=== PATIENT | female | born 1975 | race Caucasian/White ===

== ENCOUNTER 2023-08-31 17:50 | Emergency (ER) | payer SELFPAY ==
[2023-08-31 17:54] VITALS: BP 120/41; PULSE 68; TEMP 36.6; O2SAT 98; BMI 26.6
--- NOTE | 2023-08-31 18:05 | XR_ITS ---
The [address] [address] Patient Name: STERLING FROST MRN: [id number] date: 1975 Sex: F Assigned Patient Location: ED.MAIN Current Patient Location: Accession/Order Number: [id number] Exam Date: 08/31/2023 18:12 Report Date: 08/31/2023 19:13 At the request of: CLYDE LOPEZ Procedure: XR tibia fibula LT 2V EXAM: XR tibia fibula LT 2V , 08/31/2023 HISTORY: pain mid calf COMPARISON: None. TECHNIQUE: X-rays of the left tibia and fibula 4 views. FINDINGS: No fracture or dislocation left tibia and fibula. No obvious soft tissue swelling. The bones are well-mineralized. Unremarkable joint spaces. XR/XR tibia fibula LT 2V IMPRESSION: No fracture or dislocation left tibia and fibula. Electronically authenticated by: GARRETT CARMONA Date: 08/31/2023 19:13
--- NOTE | 2023-08-31 18:07 | ED_ITS ---
HPI HPI - Extremity Injury (Lower) General Chief Complaint: Extremity Injury, Lower Stated Complaint: LOWER EXTREMITY INJURY Time Seen by Provider: 08/31/23 17:51 Source: patient Mode of arrival: Wheelchair History of Present Illness HPI Narrative: Patient is a 48-year-old female presents to the ER with concerns of left calf pain. Earlier this evening patient was playing a game with a ball and racquet in the yard with her granddaughter when she felt a pulling sensation in her left medial calf. Patient states she has had the same episode before in her right leg with a calf tear. Patient has crutches and a boot at home but was concerned about the level of pain and presents to the ER. Patient works as a medical coding specialist at the [employer] and verbalizes that she would like to follow- up with them for ongoing care but did not want to drive to the [facility] this evening. Patient denies any head or neck injury. Patient notes pain is well localized to the medial gastroc, nonradiating at the musculotendinous junction. She denies any pain to the distal ankle or foot. Patient denies any injury. MD complaint: Reports leg injury (Left medial gastroc) Type of Injury: Reports other (Pushoff with calf and extension) Place: Reports home Severity: moderate Exacerbating factors: Reports weight bearing, movement and palpation Context: Reports jumping Associated symptoms: Reports swelling Treatments prior to arrival: Reports cold therapy Related Data Previous Rx's ?Medication ?Instructions ?Recorded ibuprofen 600 mg tablet 600 mg PO TID PRN pain #30 tabs 08/31/23 miscellaneous medical supply 1 ea miscellaneous DAILY 60 days 08/31/23 #1 ea Allergies Allergy/AdvReac Type Severity Reaction Status Date / Time acetaminophen [From Vicodin] Allergy Severe Verified 08/31/23 17:58 hydrocodone [From Vicodin] Allergy Severe Verified 08/31/23 17:58 Opioid HPI Opioid Management Most Recent Pain and Opioid Data: No Data to Display Review of Systems ROS Constitutional Denies: fever or chills Eyes Denies: change in vision Ears, nose, mouth, and throat Denies: throat pain or neck pain Cardiovascular Denies: chest pain or palpitations Respiratory Denies: shortness of breath or cough Gastrointestinal Denies: abdominal pain or nausea Musculoskeletal Reports: extremity pain and extremity swelling (left medial gastroc); Denies: back pain or neck pain Integumentary/Breast Denies: rash or itching Neurological Denies: headache Hematologic/Lymphatic Denies: easy bruising Allergic/Immunologic Denies: hives Exam Narrative Exam Narrative: Vital signs reviewed and nurse's notes. The patient is not hypoxic. General: Alert, no acute distress, patient resting comfortably Skin: warm, intact, no pallor noted Head: Normocephalic, atraumatic Eye: Normal conjunctiva, no exudates Respiratory: No acute distress, lungs CTA Musculoskeletal: No evidence of deformity to the left knee or calf. There is trace amount of swelling medial gastroc at musculotendinous junction. There is no ecchymosis. No erythema or warmth noted. DP and PT pulses are intact 2+. Normal sensation, normal capillary refill less than 2 seconds. There is no cyanosis or mottling noted. The patient has point tenderness medial gastroc musculotendinous junction. no pain to distal achilles , belly or lateral gastroc. The patient has no laxity with varus or valgus stressing. The patient has negative anterior drawer . The patient was able to flex and extend although with pain at the ankle. Patient was able to extend leg off the cart without difficulty. No tenderness noted to the 5th MT, midfoot, ankle or proximal fibular area. There is no pain with calcaneal squeeze, achilles tendon is intact and no defect is palpated. The patient has no pelvic instability. The patient has no shortening or rotation noted to the bilateral lower extremities. Neurological: alert and orient x4, normal sensory and motor observed. Psychiatric: Cooperative Constitutional Vital Signs, click to edit/add: Last Vital Signs Temp 98 F 08/31/23 17:54 Pulse 68 08/31/23 17:54 Resp 20 08/31/23 17:54 BP 120/41 L 08/31/23 17:54 Pulse Ox 98 08/31/23 17:54 O2 Del Method Room Air 08/31/23 17:54 Course Vital Signs Vital signs: Vital Signs Temperature 98 F 08/31/23 17:54 Pulse Rate 68 08/31/23 17:54 Respiratory Rate 20 08/31/23 17:54 Blood Pressure 120/41 L 08/31/23 17:54 Pulse Oximetry 98 08/31/23 17:54 Oxygen Delivery Method Room Air 08/31/23 17:54 Temperature 98 F 08/31/23 17:54 Pulse Rate 68 08/31/23 17:54 Respiratory Rate 20 08/31/23 17:54 Blood Pressure 120/41 L 08/31/23 17:54 Pulse Oximetry 98 08/31/23 17:54 Oxygen Delivery Method Room Air 08/31/23 17:54 MDM - Extremity Injury (Lower) MDM Narrative Medical decision making narrative: Discussed patient's injury, clinical exam and even her prior history consistent with like a gastroc strain, partial tear. Patient already has a well-fitting boot from the right leg and is familiar with crutches and reports her crutches are at home. We recommend she be nonweightbearing pending follow-up with orthopedics or sports medicine. Patient request to see [employer] [employer] [facility] provider as they are in her network. She works for the [employer]. She would like to continue working and is given a prescription for a knee scooter and will need to be nonweightbearing pending follow-up with clinic. We recommend strict ice and elevation. Motrin and patient agreeable to IM Toradol and Norflex here. Patient requesting x-ray, I do not feel ultrasound is clinically indicated given Examination: But given immobilization and nonweightbearing, this will need to be reassessed by ongoing care. Patient thankful had no further concerns The patient is to followup with primary care physician/Orthopedics/sports medicine in next 1-3 days or to return to the emergency department should any of the signs or symptoms worsen or new symptoms develop. Patient had questions answered. The patient agrees with the following Diagnosis and Treatment plan and the patient will be discharged home. Patient reports her boot is in good repair at home and declines the need for additional medical supply at this time. Imaging Data Tib-fib left: Attestation: I personally reviewed and interpreted this imaging study as follows: My impression: No acute fracture, normal alignment. Discharge Plan Discharge Stand Alone Forms: Portal Instructions Chief Complaint: Extremity Injury, Lower Clinical Impression: Strain of left calf muscle, Pain of left calf Patient Disposition: Home, Self-Care Time of Disposition Decision: 18:30 Condition: Good Prescriptions / Home Meds: New ibuprofen 600 mg tablet 600 mg PO TID PRN (Reason: pain) Qty: 30 0RF miscellaneous medical supply Misc 1 ea miscellaneous DAILY 60 Days Qty: 1 0RF Rx Instructions: Knee scooter. Print Language: Czech Instructions: P.R.I.C.E. Treatment (ED) Additional Instructions: [facility], [place] Office [address]?,?[place]?[address] Call?[phone] Referrals: Physician,Non-Staff, [Primary Care Provider] - 1 week Giovanni Liu MD [Physician] - As needed
[2023-08-31] MEDS: ORPHENADRINE 60 MG/ 2 ML VIAL IM (18:24)
[2023-08-31] MEDS: KETOROLAC TROMETHAMINE 60 MG/2 ML VIAL IM (18:24)
== END 2023-08-31 18:43 | disposition home or self-care (01) ==
PROVIDERS: Emergency Provider Emergency Medicine
DX: S86.812A Strain of other muscle(s) and tendon(s) at lower leg level, left leg, initial encounter (principal); M79.662 Pain in left lower leg; X50.9XXA Other and unspecified overexertion or strenuous movements or postures, initial encounter
CPT/HCPCS: 73590; 96372; 99284